=== PATIENT | female | born 1935 | race Caucasian/White ===

== ENCOUNTER → 2024-07-23 | Emergency (ER) | payer MEDICARE ==
[~2024-07-23] VITALS: Ht 157.5 cm; Wt 57.2 kg
[2024-07-24 01:22] VITALS: BP 140/55; O2SAT 99
== END | disposition home or self-care (01) ==
LOC: EDBD 22:18 → ER 22:18
DX: S05.11XA Contusion of eyeball and orbital tissues, right eye, initial encounter (principal); M25.561 Pain in right knee; R94.31 Abnormal electrocardiogram [ECG] [EKG]; Z88.1 Allergy status to other antibiotic agents; Z88.8 Allergy status to other drugs, medicaments and biological substances; Z91.041 Radiographic dye allergy status; W18.39XA Other fall on same level, initial encounter; Y93.89 Activity, other specified; Y92.89 Other specified places as the place of occurrence of the external cause; Y99.8 Other external cause status
CPT/HCPCS: 70450; 70486; A4606; A4663